=== PATIENT | female | born 1955 ===

== ENCOUNTER → 2016-06-02 | Outpatient (CLI) | payer OTHER ==
[2016-06-02 08:11] LABS: BLOOD UREA NITROGEN 32 mg/dL (7-22); CREATININE 0.9 mg/dL (0.50-1.20); EST GLOMERULAR FILTRATION > 60 (>60 ml/min/1.73m(2))
--- NOTE | 2016-06-02 16:58 | DI ---
HISTORY: Suspicious lymph nodes. COMPARISON: None available. TECHNIQUE: Multiple CT images were obtained through chest, abdomen and pelvis with IV contrast. FINDINGS: CHEST: The lungs are clear. There are a few coronary artery calcifications. There is no mediastinal lymphadenopathy. No supraclavicular lymphadenopathy. No axillary lymphadenopathy. ABDOMEN AND PELVIS: There is no evidence of mesenteric nor retroperitoneal lymphadenopathy. There are multiple left renal subcentimeter hypodensities which are too small to characterize. There is no free air nor free fluid. There are multiple vascular calcifications. Degenerative changes of the spine. IMPRESSION: 1. No intrathoracic nor intra-abdominal lymphadenopathy.
== END ==
LOC: CT 07:36
PROVIDERS: ATTEND Nurse Practitioner Family
DX: Z01.812 Encounter for preprocedural laboratory examination (principal); R59.0 Localized enlarged lymph nodes
CPT/HCPCS: 36415; 71260; 74177; 82565; 84520